=== PATIENT | male | born 1965 | race Caucasian/White ===

== ENCOUNTER 2016-12-01 13:11 | Inpatient (IN) | payer OTHER ==
[2016-12-01 13:35] VITALS: BMI 33.9
--- NOTE | 2016-12-01 13:50 | HP ---
CIWA Score - CIWA Score Nausea/Vomitin-Mild Nausea/No Vomiting Muscle Tremors: 4-Moderate,w/Arms Extend Anxiety: 4-Mod. Anxious/Guarded Agitation: 1-Slight > Activity Paroxysmal Sweats: 1-Minimal Palms Moist Orientation: 1-Uncertain about Date Tacttile Disturbances: 1-Very Mild Itch/Numbness Auditory Disturbances: 1-Very Mild Visual Disturbances: 1-Very Mild Sensitivity Headache: 1-Very Mild CIWA-Ar Total Score: 16 Admission ROS S - HPI Chief Complaint: I want to stop using everything Allergies/Adverse Reactions: Allergies Allergy/AdvReac Type Severity Reaction Status Date / Time No Known Allergies Allergy Verified 12/01/16 13:34 History of Present Illness: 51 yo gentleman here for detox from alcohol - also with intermittent opiates use (heroin, percocet) but none for several days (urine tox neg for opiates). No seizures. States last detox about 5 years ago. Exam Limitations: Clinical Condition - Ebola screening Have you traveled outside of the country in the last 21 days: No Have you had contact with anyone from an Ebola affected area: No Have you been sick,other than usual withdrawal symptoms: No Do you have a fever: No - Review of Systems Constitutional: Chills, Loss of Appetite, Malaise, Changes in sleep EENT: reports: Blurred Vision Respiratory: reports: No Symptoms reported Cardiac: reports: No Symptoms Reported GI: reports: Indigestion : reports: Frequency Musculoskeletal: reports: Back Pain, Joint Pain, Joint Stiffness Integumentary: reports: No Symptoms Reported Neuro: reports: Headache Endocrine: reports: No Symptoms Reported Hematology: reports: No Symptoms Reported Psychiatric: reports: Judgement Intact, Mood/Affect Appropiate, Orientated x3, Anxious Other Systems: Reviewed and Negative Patient History - Patient Medical History Hx Anemia: No Hx Asthma: Yes Hx Chronic Obstructive Pulmonary Disease (COPD): No Hx Cancer: No Hx Cardiac Disorders: No Hx Congestive Heart Failure: No Hx Hypertension: Yes Hx Hypercholesterolemia: No Hx Pacemaker: No HX Cerebrovascular Accident: No Hx Seizures: No Hx Dementia: No Hx Diabetes: Yes (on insulin) Hx Gastrointestinal Disorders: No Hx Liver Disease: No Hx Genitourinary Disorders: No Hx Sexually Transmitted Disorders: No Hx Renal Disease (ESRD): No Hx Thyroid Disease: No Hx Human Immunodeficiency Virus (HIV): No Hx Hepatitis C: No Hx Depression: Yes (with anxiety) Hx Suicide Attempt: Yes (many years ago) Hx Bipolar Disorder: Yes (hospitalized years ago) Other Medical History: arthritis - back, joint pain - Patient Surgical History Past Surgical History: No - PPD History Previous Implant?: Yes Documented Results: Negative w/o proof PPD to be Administered?: Yes - Reproductive History Patient is a Female of Child Bearing Age (11 -55 yrs old): No (male) - Smoking Cessation Smoking history: Current every day smoker Have you smoked in the past 12 months: Yes Aproximately how many cigarettes per day: 20 Initiated information on smoking cessation: Yes 'Breaking Loose' booklet given: 12/01/16 (give on floor) - Substance & Tx. History Hx Alcohol Use: Yes Hx Substance Use: Yes Substance Use Type: Alcohol, Cocaine, Heroin, Opiates Hx Substance Use Treatment: Yes (detox , rehab) - Substances Abused Alcohol Route: Oral Frequency: Daily Amount used: four 12oz beers Age of first use: 11 Date of Last Use: 12/01/16 Heroin Route: Inhalation Frequency: 1-2 times per week Amount used: 1 bag Age of first use: 29 Date of Last Use: 11/28/16 percocet 10/325 Route: Oral Frequency: 1-2 times per week Amount used: two Age of first use: 29 Date of Last Use: 11/28/16 Cocaine Route: Inhalation Frequency: Daily Amount used: 5 grams Age of first use: 29 Date of Last Use: 11/30/16 Family Disease History - Family Disease History Family Disease History: [place]: Grandparent (), Other: Father (, cancer, etoh/drugs), Mother (, cancer, etoh/drugs), Brother (two alive - no problems), Sister (one - alive - no problems) Admission Physical Exam BHS - Vital Signs Vital Signs: Vital Signs - 24 hr 12/01/16 13:33 Temperature 97.2 F L Pulse Rate 76 Respiratory 20 Rate Blood Pressure 124/76 - Physical General Appearance: Yes: Nourished, Appropriately Dressed, Mild Distress, Obese , Anxious HEENTM: Yes: Hearing grossly Normal, Normal ENT Inspection, Normocephalic, Normal Voice, Pharynx Normal Respiratory: Yes: Normal Breath Sounds, No Respiratory Distress Neck: Yes: No masses,lesions,Nodules, Supple Breast: Yes: Breast Exam Deferred Cardiology: Yes: Regular Rhythm, Regular Rate Abdominal: Yes: Soft Genitourinary: Yes: Frequency Back: Yes: Decreased Range of Motion, Other (mild kyphosis) Musculoskeletal: Yes: full range of Motion, Gait Steady, Back pain, Joint Stiffness Extremities: Yes: Normal Inspection, Normal Range of Motion Neurological: Yes: Fully Oriented, Alert, Normal Mood/Affect, Normal Response Integumentary: Yes: Normal Color, Warm Lymphatic: Yes: Within Normal Limits - Diagnostic (1) Alcohol dependence with uncomplicated withdrawal Current Visit: Yes Status: Chronic (2) Cocaine dependence Current Visit: Yes Status: Chronic Qualifiers: Substance use status: uncomplicated Qualified Code(s): F14.20 - Cocaine dependence, uncomplicated (3) HTN (hypertension) Current Visit: Yes Status: Chronic Qualifiers: Hypertension type: essential hypertension Qualified Code(s): I10 - Essential (primary) hypertension (4) Nicotine dependence Current Visit: Yes Status: Chronic Qualifiers: Nicotine product type: cigarettes Substance use status: uncomplicated Qualified Code(s): F17.210 - Nicotine dependence, cigarettes, uncomplicated (5) Type 2 diabetes mellitus treated with insulin Current Visit: Yes Status: Chronic (6) Osteoarthritis Current Visit: Yes Status: Chronic Qualifiers: Osteoarthritis location: multiple joints Osteoarthritis type: primary Qualified Code(s): M15.0 - Primary generalized (osteo)arthritis Cleared for Admission S - Detox or Rehab [facility] Level of Care: Medically Managed Detox Regimen/Protocol: Librium [facility] Breath Alcohol Content Breath Alcohol Content: 0 Urine Drug Screen - Results Drug Screen Negative: No Urine Drug Screen Results: SUDARSHAN-Cocaine
[2016-12-01] MEDS ORDERED: MAG HYDROX/AL HYDROX/SIMETH 30 ML UNIT-DOSE CUP PO PRN (13:53)
[2016-12-01] MEDS ORDERED: MAGNESIUM HYDROX 2400MG/30ML ORAL SUSPENSION 30 ML CUP PO PRN (13:53)
[2016-12-01] MEDS ORDERED: P-EPHED 60MG/TRIPROLIDI 2.5MG TABLET PO PRN (13:53)
[2016-12-01] MEDS ORDERED: hydrOXYzine PAMOATE 25 MG CAPSULE (FP) PO PRN (13:53)
[2016-12-01] MEDS ORDERED: LOPERAMIDE HCL 2 MG CAPSULE PO PRN (13:53)
[2016-12-01] MEDS ORDERED: ACETAMINOPHEN 325 MG TABLET (FP) PO PRN (13:53)
[2016-12-01] MEDS ORDERED: NICOTINE POLACRILEX 4 MG GUM BUC PRN (13:53)
[2016-12-01] MEDS ORDERED: MENTHOL/PHENOL 1 EACH UD MM PRN (13:53)
[2016-12-01] MEDS ORDERED: chlordiazePOXIDE HCL 25 MG CAPSULE PO PRN (13:53)
[2016-12-01] MEDS ORDERED: MAGNESIUM CITRATE 300 ML BOTTLE PO PRN (13:53)
[2016-12-01] MEDS ORDERED: guaiFENesin/D-METHORPHAN HB 10 ML UNIT-DOSE CUPS PO PRN (13:53)
[2016-12-01] MEDS: chlordiazePOXIDE HCL 25 MG CAPSULE PO SCH ×2 (17:38→22:37)
[2016-12-01] MEDS: INSULIN (NOVOLOG) ASPART 100 UNITS/ML 10ML VIAL SQ SCH ×2 (17:39→21:27)
[2016-12-01 17:42] LABS: URINE APPEARANCE CLEAR; URINE BILIRUBIN NEGATIVE (NEGATIVE); URINE BLOOD NEGATIVE (NEGATIVE); URINE COLOR YELLOW; URINE GLUCOSE (UA) 2+ (NEGATIVE); URINE KETONE NEGATIVE (NEGATIVE); URINE LEUK ESTERASE NEGATIVE (NEGATIVE); URINE NITRITE NEGATIVE (NEGATIVE); URINE PROTEIN NEGATIVE (NEGATIVE); URINE UROBILINOGEN NEGATIVE E.U./dl (0.2-1.0)
[2016-12-01] MEDS ORDERED: INSULIN (NOVOLOG) ASPART 100 UNITS/ML 10ML VIAL ONE (17:44)
[2016-12-01] MEDS ORDERED: chlordiazePOXIDE HCL 25 MG CAPSULE PO ONE (18:00)
[2016-12-01] MEDS: INSULIN DETEMIR 100 UNITS/ML MDV SQ SCH (21:25)
[2016-12-01] MEDS: CLOTRIMAZOLE/BETAMET DIPROP 15 GM TUBE TP SCH (21:26)
[2016-12-01] MEDS: THIAMINE HCL 100 MG TABLET (FP) PO SCH (21:26)
[2016-12-01] MEDS ORDERED: PATIENT'S OWN MEDICATION (NON-FORMULARY) (Metformin Hcl [Glucophage] 1,000 MG) PO SCH (22:00)
[2016-12-02] MEDS: chlordiazePOXIDE HCL 25 MG CAPSULE PO SCH ×4 (05:35→22:16)
[2016-12-02] MEDS: INSULIN (NOVOLOG) ASPART 100 UNITS/ML 10ML VIAL SQ SCH ×4 (07:05→22:18)
[2016-12-02] MEDS: metFORMIN HCL 500 MG TABLET (FP) PO SCH ×2 (08:01→17:33)
[2016-12-02 09:29] LABS: MCHC 33.1 g/dl (32.0-35.9); MEAN CELL VOLUME 84.5 fl (80-96); PLATELET COUNT 166 K/MM3 (134-434); RDW 14.5 % (11.9-15.9); WHITE BLOOD COUNT 7.3 K/mm3 (4.0-10.0)
[2016-12-02 09:44] LABS: ALBUMIN 2.8 g/dl (3.4-5.0); ALK PHOS 92 U/L (45-117); ANION GAP 10 (8-16); BILIRUBIN,TOTAL 0.5 mg/dL (0.2-1.0); CALCIUM 8.1 mg/dL (8.5-10.1); CO2 25 mmol/L (21-32); COCKROFT - GAULT 166.31; CREATININE 0.7 mg/dL (0.7-1.3); GLUCOSE,RANDOM 231 mg/dL (74-106); SGOT/AST 5 U/L (15-37); SGPT/ALT 10 U/L (12-78); TOT PROT 5.4 g/dl (6.4-8.2)
[2016-12-02] MEDS ORDERED: PATIENT'S OWN MEDICATION (NON-FORMULARY) (Amlodipine Besylate/Benazepril [Lotrel 5-10 Mg C PO SCH (10:00)
[2016-12-02] MEDS ORDERED: PATIENT'S OWN MEDICATION (NON-FORMULARY) (Meloxicam 15 MG) PO SCH (10:00)
[2016-12-02] MEDS ORDERED: PATIENT'S OWN MEDICATION (NON-FORMULARY) (Beclomethasone Dipropionate [Qvar] 8.7 GM) IH SCH (10:00)
[2016-12-02] MEDS: ASPIRIN 81 MG CHEWABLE TABLETS PO SCH (10:10)
[2016-12-02] MEDS: PRENATAL VITAMINS W/ FOLIC ACID TABLET (FP) PO SCH (10:10)
[2016-12-02] MEDS: LISINOPRIL 10 MG TABLET (FP) PO SCH (10:10)
[2016-12-02] MEDS: amLODIPine BESYLATE 5 MG TABLET (FP) PO SCH (10:10)
[2016-12-02] MEDS: CLOTRIMAZOLE/BETAMET DIPROP 15 GM TUBE TP SCH ×2 (10:12→22:18)
[2016-12-02 10:15] LABS: HIV 1 & 2 AB NEGATIVE; HIV 1 AGp24 NEGATIVE
--- NOTE | 2016-12-02 13:04 | PN ---
S CIWA - CIWA Score Nausea/Vomitin Muscle Tremors: 4-Moderate,w/Arms Extend Anxiety: 4-Mod. Anxious/Guarded Agitation: 4-Moderately Restless Paroxysmal Sweats: No Perspiration Orientation: 0-Oriented Tacttile Disturbances: 1-Very Mild Itch/Numbness Auditory Disturbances: 0-None Visual Disturbances: 0-None Headache: 3-Moderate CIWA-Ar Total Score: 19 BHS Progress Note (SOAP) Subjective: Anxious, sweating, chills, tremor, body ache Objective: 12/02/16 12:59 Last Vital Signs Temp Pulse Resp BP Pulse Ox 96.9 F L 77 18 127/78 12/02/16 10:15 12/02/16 10:15 12/02/16 10:15 12/02/16 10:15 Laboratory Tests 12/01/16 12/01/16 12/01/16 14:53 16:08 17:34 WBC RBC Hgb Hct MCV MCHC RDW Plt Count MPV Sodium Potassium Chloride Carbon Dioxide Anion Gap BUN Creatinine Creat Clearance w eGFR POC Glucometer 331 273 Random Glucose Calcium Total Bilirubin AST ALT Alkaline Phosphatase Total Protein Albumin Urine Color Yellow Urine Appearance Clear Urine pH 6.0 Ur Specific [place] 1.015 Urine Protein Negative Urine Glucose (UA) 2+ H Urine Ketones Negative Urine Blood Negative Urine Nitrite Negative Urine Bilirubin Negative Urine Urobilinogen Negative Ur Leukocyte Esterase Negative RPR Titer HIV 1&2 Antibody Screen HIV P24 Antigen 12/01/16 12/02/16 12/02/16 21:13 05:36 06:20 WBC 7.3 RBC 4.85 Hgb 13.6 Hct 41.0 MCV 84.5 MCHC 33.1 RDW 14.5 Plt Count 166 MPV 10.0 Sodium Potassium Chloride Carbon Dioxide Anion Gap BUN Creatinine Creat Clearance w eGFR POC Glucometer 186 183 Random Glucose Calcium Total Bilirubin AST ALT Alkaline Phosphatase Total Protein Albumin Urine Color Urine Appearance Urine pH Ur Specific [place] Urine Protein Urine Glucose (UA) Urine Ketones Urine Blood Urine Nitrite Urine Bilirubin Urine Urobilinogen Ur Leukocyte Esterase RPR Titer HIV 1&2 Antibody Screen HIV P24 Antigen 12/02/16 12/02/16 12/02/16 06:20 06:20 06:20 WBC RBC Hgb Hct MCV MCHC RDW Plt Count MPV Sodium 142 Potassium 4.2 Chloride 107 Carbon Dioxide 25 Anion Gap 10 BUN 10 Creatinine 0.7 Creat Clearance w eGFR > 60 POC Glucometer Random Glucose 231 H Calcium 8.1 L Total Bilirubin 0.5 AST 5 L ALT 10 L Alkaline Phosphatase 92 Total Protein 5.4 L Albumin 2.8 L Urine Color Urine Appearance Urine pH Ur Specific [place] Urine Protein Urine Glucose (UA) Urine Ketones Urine Blood Urine Nitrite Urine Bilirubin Urine Urobilinogen Ur Leukocyte Esterase RPR Titer Nonreactive HIV 1&2 Antibody Screen Negative HIV P24 Antigen Negative Labs noted: serum glucose 231, UA: 2+ glucose, Finger stick 183mg/dl Assessment: 12/02/16 13:02 Withdrawal symptoms Noted with hyperglycemia and glycosuria secondary to DMT2 Plan: Continue detox, encouraged to drink lots of water Hyperglycemia and glycosuria secondary to DMT2: continue present regimen, continue to monitor
[2016-12-02] MEDS ORDERED: INSULIN (NOVOLOG) ASPART 100 UNITS/ML 10ML VIAL ONE (21:25)
[2016-12-02] MEDS: diphenhydrAMINE HCL 50 MG CAPSULE PO PRN (22:16)
[2016-12-02] MEDS: THIAMINE HCL 100 MG TABLET (FP) PO SCH (22:16)
[2016-12-02] MEDS: INSULIN DETEMIR 100 UNITS/ML MDV SQ SCH (22:18)
[2016-12-03] MEDS: chlordiazePOXIDE HCL 25 MG CAPSULE PO SCH ×2 (05:30→10:09)
[2016-12-03] MEDS: metFORMIN HCL 500 MG TABLET (FP) PO SCH ×2 (07:08→17:04)
[2016-12-03] MEDS: INSULIN (NOVOLOG) ASPART 100 UNITS/ML 10ML VIAL SQ SCH ×4 (07:08→21:14)
[2016-12-03] MEDS: ASPIRIN 81 MG CHEWABLE TABLETS PO SCH (10:08)
[2016-12-03] MEDS: amLODIPine BESYLATE 5 MG TABLET (FP) PO SCH (10:08)
[2016-12-03] MEDS: PRENATAL VITAMINS W/ FOLIC ACID TABLET (FP) PO SCH (10:09)
[2016-12-03] MEDS: LISINOPRIL 10 MG TABLET (FP) PO SCH (10:09)
[2016-12-03] MEDS: BECLOMETHASONE DIPROPIONATE IH SCH (10:09)
[2016-12-03] MEDS: CLOTRIMAZOLE/BETAMET DIPROP 15 GM TUBE TP SCH ×2 (10:11→22:07)
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
--- NOTE | 2016-12-03 11:21 | EKG ---
Test Reason : Blood Pressure : / mmHG Vent. Rate : 054 BPM Atrial Rate : 054 BPM P-R Int : 158 ms QRS Dur : 094 ms QT Int : 422 ms P-R-T Axes : 047 047 028 degrees QTc Int : 400 ms SINUS BRADYCARDIA OTHERWISE NORMAL ECG NO PREVIOUS ECGS AVAILABLE Confirmed by RUSTY REEVES MD ([id number]) on 12/03/2016 11:20:31 AM Referred By: Confirmed By:RUSTY REEVES MD
--- NOTE | 2016-12-03 12:45 | PN ---
S CIWA - CIWA Score Nausea/Vomitin-No Nausea/No Vomiting Muscle Tremors: 3 Anxiety: 3 Agitation: 3 Paroxysmal Sweats: 2 Orientation: 0-Oriented Tacttile Disturbances: 1-Very Mild Itch/Numbness Auditory Disturbances: 0-None Visual Disturbances: 0-None Headache: 2-Mild CIWA-Ar Total Score: 14 S Progress Note (SOAP) Subjective: Tremor, sweating, anxious, chills Objective: 12/03/16 12:44 Last Vital Signs Temp Pulse Resp BP Pulse Ox 95.9 F L 82 18 134/90 12/03/16 09:11 12/03/16 09:11 12/03/16 09:11 12/03/16 09:11 Laboratory Tests 12/01/16 12/01/16 12/01/16 14:53 16:08 17:34 WBC RBC Hgb Hct MCV MCHC RDW Plt Count MPV Sodium Potassium Chloride Carbon Dioxide Anion Gap BUN Creatinine Creat Clearance w eGFR POC Glucometer 331 273 Random Glucose Calcium Total Bilirubin AST ALT Alkaline Phosphatase Total Protein Albumin Urine Color Yellow Urine Appearance Clear Urine pH 6.0 Ur Specific [place] 1.015 Urine Protein Negative Urine Glucose (UA) 2+ H Urine Ketones Negative Urine Blood Negative Urine Nitrite Negative Urine Bilirubin Negative Urine Urobilinogen Negative Ur Leukocyte Esterase Negative RPR Titer HIV 1&2 Antibody Screen HIV P24 Antigen 12/01/16 12/02/16 12/02/16 21:13 05:36 06:20 WBC 7.3 RBC 4.85 Hgb 13.6 Hct 41.0 MCV 84.5 MCHC 33.1 RDW 14.5 Plt Count 166 MPV 10.0 Sodium Potassium Chloride Carbon Dioxide Anion Gap BUN Creatinine Creat Clearance w eGFR POC Glucometer 186 183 Random Glucose Calcium Total Bilirubin AST ALT Alkaline Phosphatase Total Protein Albumin Urine Color Urine Appearance Urine pH Ur Specific [place] Urine Protein Urine Glucose (UA) Urine Ketones Urine Blood Urine Nitrite Urine Bilirubin Urine Urobilinogen Ur Leukocyte Esterase RPR Titer HIV 1&2 Antibody Screen HIV P24 Antigen 12/02/16 12/02/16 12/02/16 06:20 06:20 06:20 WBC RBC Hgb Hct MCV MCHC RDW Plt Count MPV Sodium 142 Potassium 4.2 Chloride 107 Carbon Dioxide 25 Anion Gap 10 BUN 10 Creatinine 0.7 Creat Clearance w eGFR > 60 POC Glucometer Random Glucose 231 H Calcium 8.1 L Total Bilirubin 0.5 AST 5 L ALT 10 L Alkaline Phosphatase 92 Total Protein 5.4 L Albumin 2.8 L Urine Color Urine Appearance Urine pH Ur Specific [place] Urine Protein Urine Glucose (UA) Urine Ketones Urine Blood Urine Nitrite Urine Bilirubin Urine Urobilinogen Ur Leukocyte Esterase RPR Titer Nonreactive HIV 1&2 Antibody Screen Negative HIV P24 Antigen Negative 12/02/16 12/02/16 12/03/16 16:05 20:52 05:31 WBC RBC Hgb Hct MCV MCHC RDW Plt Count MPV Sodium Potassium Chloride Carbon Dioxide Anion Gap BUN Creatinine Creat Clearance w eGFR POC Glucometer 181 313 151 Random Glucose Calcium Total Bilirubin AST ALT Alkaline Phosphatase Total Protein Albumin Urine Color Urine Appearance Urine pH Ur Specific [place] Urine Protein Urine Glucose (UA) Urine Ketones Urine Blood Urine Nitrite Urine Bilirubin Urine Urobilinogen Ur Leukocyte Esterase RPR Titer HIV 1&2 Antibody Screen HIV P24 Antigen 12/03/16 11:07 WBC RBC Hgb Hct MCV MCHC RDW Plt Count MPV Sodium Potassium Chloride Carbon Dioxide Anion Gap BUN Creatinine Creat Clearance w eGFR POC Glucometer 148 Random Glucose Calcium Total Bilirubin AST ALT Alkaline Phosphatase Total Protein Albumin Urine Color Urine Appearance Urine pH Ur Specific [place] Urine Protein Urine Glucose (UA) Urine Ketones Urine Blood Urine Nitrite Urine Bilirubin Urine Urobilinogen Ur Leukocyte Esterase RPR Titer HIV 1&2 Antibody Screen HIV P24 Antigen Labs noted Assessment: Withdrawal symptoms Plan: Continue detox
[2016-12-03] MEDS ORDERED: INSULIN (NOVOLOG) ASPART 100 UNITS/ML 10ML VIAL ONE (16:50)
[2016-12-03] MEDS: chlordiazePOXIDE 5 MG CAPSULE PO SCH ×2 (17:04→22:06)
[2016-12-03] MEDS: INSULIN DETEMIR 100 UNITS/ML MDV SQ SCH (21:30)
[2016-12-03] MEDS: THIAMINE HCL 100 MG TABLET (FP) PO SCH (22:06)
[2016-12-03] MEDS: diphenhydrAMINE HCL 50 MG CAPSULE PO PRN (22:07)
[2016-12-03] MEDS: ARIPiprazole 10 MG TABLET PO SCH (22:32)
[2016-12-04] MEDS: chlordiazePOXIDE 5 MG CAPSULE PO SCH ×2 (05:22→10:03)
[2016-12-04] MEDS ORDERED: INSULIN (NOVOLOG) ASPART 100 UNITS/ML 10ML VIAL ONE ×4 (07:18→21:15)
[2016-12-04] MEDS: metFORMIN HCL 500 MG TABLET (FP) PO SCH ×2 (07:21→17:08)
[2016-12-04] MEDS: INSULIN (NOVOLOG) ASPART 100 UNITS/ML 10ML VIAL SQ SCH ×5 (07:21→21:30)
[2016-12-04] MEDS: PRENATAL VITAMINS W/ FOLIC ACID TABLET (FP) PO SCH (10:03)
[2016-12-04] MEDS: LISINOPRIL 10 MG TABLET (FP) PO SCH (10:03)
[2016-12-04] MEDS: amLODIPine BESYLATE 5 MG TABLET (FP) PO SCH (10:03)
[2016-12-04] MEDS: ASPIRIN 81 MG CHEWABLE TABLETS PO SCH (10:03)
[2016-12-04] MEDS: BECLOMETHASONE DIPROPIONATE IH SCH (10:05)
[2016-12-04] MEDS: CLOTRIMAZOLE/BETAMET DIPROP 15 GM TUBE TP SCH ×2 (10:05→22:20)
--- NOTE | 2016-12-04 11:25 | PN ---
BHS Progress Note (SOAP) Subjective: Sweating,interrupted sleep,restless Objective: 12/04/16 11:23 Vital Signs - 8 hr 12/04/16 12/04/16 12/04/16 03:31 07:23 09:11 Temperature 97.4 F L 96.9 F L Pulse Rate 71 82 Respiratory 18 18 20 Rate Blood Pressure 151/97 144/92 Laboratory Last Values WBC 7.3 K/mm3 (4.0-10.0) 12/02/16 06:20 RBC 4.85 M/mm3 (4.00-5.60) 12/02/16 06:20 Hgb 13.6 GM/dL (11.7-16.9) 12/02/16 06:20 Hct 41.0 % (35.4-49) 12/02/16 06:20 MCV 84.5 fl (80-96) 12/02/16 06:20 MCHC 33.1 g/dl (32.0-35.9) 12/02/16 06:20 RDW 14.5 % (11.9-15.9) 12/02/16 06:20 Plt Count 166 K/MM3 (134-434) 12/02/16 06:20 MPV 10.0 fl (7.5-11.1) 12/02/16 06:20 Sodium 142 mmol/L (136-145) 12/02/16 06:20 Potassium 4.2 mmol/L (3.5-5.1) 12/02/16 06:20 Chloride 107 mmol/L (98-107) 12/02/16 06:20 Carbon Dioxide 25 mmol/L (21-32) 12/02/16 06:20 Anion Gap 10 (8-16) 12/02/16 06:20 BUN 10 mg/dL (7-18) 12/02/16 06:20 Creatinine 0.7 mg/dL (0.7-1.3) 12/02/16 06:20 Creat Clearance w eGFR > 60 (>60) 12/02/16 06:20 POC Glucometer 223 UNITS (()) 12/04/16 05:20 Random Glucose 231 mg/dL (74-106) H 12/02/16 06:20 Calcium 8.1 mg/dL (8.5-10.1) L 12/02/16 06:20 Total Bilirubin 0.5 mg/dL (0.2-1.0) 12/02/16 06:20 AST 5 U/L (15-37) L 12/02/16 06:20 ALT 10 U/L (12-78) L 12/02/16 06:20 Alkaline Phosphatase 92 U/L (45-117) 12/02/16 06:20 Total Protein 5.4 g/dl (6.4-8.2) L 12/02/16 06:20 Albumin 2.8 g/dl (3.4-5.0) L 12/02/16 06:20 Urine Color Yellow 12/01/16 17:34 Urine Appearance Clear 12/01/16 17:34 Urine pH 6.0 (5.0-8.0) 12/01/16 17:34 Ur Specific [place] 1.015 (1.005-1.025) 12/01/16 17:34 Urine Protein Negative (NEGATIVE) 12/01/16 17:34 Urine Glucose (UA) 2+ (NEGATIVE) H 12/01/16 17:34 Urine Ketones Negative (NEGATIVE) 12/01/16 17:34 Urine Blood Negative (NEGATIVE) 12/01/16 17:34 Urine Nitrite Negative (NEGATIVE) 12/01/16 17:34 Urine Bilirubin Negative (NEGATIVE) 12/01/16 17:34 Urine Urobilinogen Negative E.U./dl (0.2-1.0) 12/01/16 17:34 Ur Leukocyte Esterase Negative (NEGATIVE) 12/01/16 17:34 RPR Titer Nonreactive (NONREACTIVE) 12/02/16 06:20 HIV 1&2 Antibody Screen Negative 12/02/16 06:20 HIV P24 Antigen Negative 12/02/16 06:20 labs noted Assessment: 12/04/16 11:24 withdrawal sx. Plan: Continue detox
[2016-12-04] MEDS: chlordiazePOXIDE HCL 10 MG CAPSULE PO SCH ×2 (17:08→22:09)
[2016-12-04] MEDS: INSULIN DETEMIR 100 UNITS/ML MDV SQ SCH (21:31)
[2016-12-04] MEDS: THIAMINE HCL 100 MG TABLET (FP) PO SCH (22:09)
[2016-12-04] MEDS: ARIPiprazole 10 MG TABLET PO SCH (22:09)
[2016-12-04] MEDS: diphenhydrAMINE HCL 50 MG CAPSULE PO PRN (22:09)
[2016-12-05] MEDS: chlordiazePOXIDE HCL 10 MG CAPSULE PO SCH (05:34)
[2016-12-05] MEDS: metFORMIN HCL 500 MG TABLET (FP) PO SCH (07:11)
[2016-12-05] MEDS: INSULIN (NOVOLOG) ASPART 100 UNITS/ML 10ML VIAL SQ SCH (07:11)
[2016-12-05 09:25] VITALS: BP 134/83; PULSE 77; TEMP 97
--- NOTE | 2016-12-05 12:17 | DS ---
[facility] Detox Discharge Summary Admission Date: 12/01/16 Discharge Date: 12/05/16 - History Present History: Alcohol Dependence, Cocaine Dependence Pertinent Past History: HTN Type II DM - Physical Exam Results Vital Signs: Vital Signs Temperature 97.0 F L 12/05/16 09:25 Pulse Rate 77 12/05/16 09:25 Respiratory Rate 18 12/05/16 09:25 Blood Pressure 134/83 12/05/16 09:25 O2 Sat by Pulse Oximetry (%) Pertinent Admission Physical Exam Findings: Withdrawal sx. Laboratory Last Values WBC 7.3 K/mm3 (4.0-10.0) 12/02/16 06:20 RBC 4.85 M/mm3 (4.00-5.60) 12/02/16 06:20 Hgb 13.6 GM/dL (11.7-16.9) 12/02/16 06:20 Hct 41.0 % (35.4-49) 12/02/16 06:20 MCV 84.5 fl (80-96) 12/02/16 06:20 MCHC 33.1 g/dl (32.0-35.9) 12/02/16 06:20 RDW 14.5 % (11.9-15.9) 12/02/16 06:20 Plt Count 166 K/MM3 (134-434) 12/02/16 06:20 MPV 10.0 fl (7.5-11.1) 12/02/16 06:20 Sodium 142 mmol/L (136-145) 12/02/16 06:20 Potassium 4.2 mmol/L (3.5-5.1) 12/02/16 06:20 Chloride 107 mmol/L (98-107) 12/02/16 06:20 Carbon Dioxide 25 mmol/L (21-32) 12/02/16 06:20 Anion Gap 10 (8-16) 12/02/16 06:20 BUN 10 mg/dL (7-18) 12/02/16 06:20 Creatinine 0.7 mg/dL (0.7-1.3) 12/02/16 06:20 Creat Clearance w eGFR > 60 (>60) 12/02/16 06:20 POC Glucometer 94 UNITS (()) 12/05/16 05:33 Random Glucose 231 mg/dL (74-106) H 12/02/16 06:20 Calcium 8.1 mg/dL (8.5-10.1) L 12/02/16 06:20 Total Bilirubin 0.5 mg/dL (0.2-1.0) 12/02/16 06:20 AST 5 U/L (15-37) L 12/02/16 06:20 ALT 10 U/L (12-78) L 12/02/16 06:20 Alkaline Phosphatase 92 U/L (45-117) 12/02/16 06:20 Total Protein 5.4 g/dl (6.4-8.2) L 12/02/16 06:20 Albumin 2.8 g/dl (3.4-5.0) L 12/02/16 06:20 Urine Color Yellow 12/01/16 17:34 Urine Appearance Clear 12/01/16 17:34 Urine pH 6.0 (5.0-8.0) 12/01/16 17:34 Ur Specific [place] 1.015 (1.005-1.025) 12/01/16 17:34 Urine Protein Negative (NEGATIVE) 12/01/16 17:34 Urine Glucose (UA) 2+ (NEGATIVE) H 12/01/16 17:34 Urine Ketones Negative (NEGATIVE) 12/01/16 17:34 Urine Blood Negative (NEGATIVE) 12/01/16 17:34 Urine Nitrite Negative (NEGATIVE) 12/01/16 17:34 Urine Bilirubin Negative (NEGATIVE) 12/01/16 17:34 Urine Urobilinogen Negative E.U./dl (0.2-1.0) 12/01/16 17:34 Ur Leukocyte Esterase Negative (NEGATIVE) 12/01/16 17:34 RPR Titer Nonreactive (NONREACTIVE) 12/02/16 06:20 HIV 1&2 Antibody Screen Negative 12/02/16 06:20 HIV P24 Antigen Negative 12/02/16 06:20 labs noted - Treatment Hospital Course: Detox Protocol Followed, Detoxed Safely, Responded well, Discharged Condition Good, Rehab Referral Accepted Patient has Accepted a Rehab Referral to: [facility] - Medication Discharge Medications: Ambulatory Orders Amlodipine Besylate/Benazepril [Lotrel 5-10 mg Capsule] 1 each PO DAILY Aripiprazole [Abilify -] 10 mg PO DAILY 12/01/16 Aspirin [ASA -] 81 mg PO DAILY 12/01/16 Beclomethasone Dipropionate [Qvar] 8.7 gm IH DAILY 12/01/16 Clonazepam [Klonopin] 1 mg PO TID PRN 12/01/16 Clotrimazole/Betamet Diprop [Lotrisone Cream (Small Tube)] 1 applic TP BID 12/01 Insulin Glargine,Hum.rec.anlog [Lantus Solostar PEN (NF)] 40 units SQ HS Meloxicam [Mobic (Nf) -] 15 mg PO DAILY 12/01/16 Metformin HCl [Glucophage] 1,000 mg PO BID 12/01/16 Zolpidem Tartrate [Ambien] 10 mg PO HS 12/01/16 Aripiprazole [Abilify] 10 mg PO HS #30 tablet 12/03/16 - Diagnosis (1) Alcohol dependence with uncomplicated withdrawal Status: Acute (2) Cocaine dependence Status: Acute Qualifiers: Substance use status: uncomplicated Qualified Code(s): F14.20 - Cocaine dependence, uncomplicated (3) Nicotine dependence Status: Acute Qualifiers: Nicotine product type: cigarettes Substance use status: uncomplicated Qualified Code(s): F17.210 - Nicotine dependence, cigarettes, uncomplicated (4) Substance induced mood disorder Status: Acute (5) HTN (hypertension) Status: Chronic Qualifiers: Hypertension type: essential hypertension Qualified Code(s): I10 - Essential (primary) hypertension (6) Osteoarthritis Status: Chronic Qualifiers: Osteoarthritis location: multiple joints Osteoarthritis type: primary Qualified Code(s): M15.0 - Primary generalized (osteo)arthritis (7) Type 2 diabetes mellitus treated with insulin Status: Chronic - AMA Did Patient Leave Against Medical Advice: No
== END 2016-12-05 08:48 | disposition home or self-care (01) | DRG 774 ==
LOC: YASAS 13:11 → Y3N 15:05
PROVIDERS: ADMIT Internal Medicine; ATTEND Internal Medicine
PROC: HZ2ZZZZ Detoxification Services for Substance Abuse Treatment (ICD-10-PCS; principal; 2016-12-01)
DX: F10.230 Alcohol dependence with withdrawal, uncomplicated (principal); F14.20 Cocaine dependence, uncomplicated; F17.210 Nicotine dependence, cigarettes, uncomplicated; F19.24 Other psychoactive substance dependence with psychoactive substance-induced mood disorder; I10 Essential (primary) hypertension; M15.0 Primary generalized (osteo)arthritis; J45.909 Unspecified asthma, uncomplicated; E11.65 Type 2 diabetes mellitus with hyperglycemia; R81 Glycosuria; E66.9 Obesity, unspecified; Z79.4 Long term (current) use of insulin; Z79.84 Long term (current) use of oral hypoglycemic drugs; Z68.33 Body mass index [BMI] 33.0-33.9, adult; Z79.82 Long term (current) use of aspirin; Z91.5 Personal history of self-harm
CPT/HCPCS: 36415; 80053; 81003; 85027; 86593; 87389; 93005; 93010